=== PATIENT | female | born 2000 | race Two or more races ===

== ENCOUNTER → 2024-07-16 12:43 | Outpatient (REF) | payer OTHER, SELFPAY | LOC: RCS 12:43 | PROVIDERS: ATTENDING PHYSICIAN Internal Medicine; FAMILY PHYSICIAN Physician Assistant Medical | DX: I49.9 Cardiac arrhythmia, unspecified (principal); R00.0 Tachycardia, unspecified | CPT/HCPCS: 93225; 93226 ==

== ENCOUNTER → 2024-07-25 15:47 | Outpatient (REF) | payer OTHER, SELFPAY | LOC: HWRCS 15:47 | PROVIDERS: ATTENDING PHYSICIAN Internal Medicine; FAMILY PHYSICIAN Physician Assistant Medical | DX: I49.9 Cardiac arrhythmia, unspecified (principal); R00.0 Tachycardia, unspecified | CPT/HCPCS: 93306 ==

== ENCOUNTER → 2024-11-19 12:14 | Outpatient (REF) | payer OTHER, SELFPAY | LOC: CLAB 12:14 | PROVIDERS: ATTENDING PHYSICIAN Surgery | DX: N63.11 Unspecified lump in the right breast, upper outer quadrant (principal) | CPT/HCPCS: 88307 ==